=== PATIENT | male | born 1980 | race Caucasian/White ===

== ENCOUNTER 2021-03-13 10:37 | Emergency (ER) | payer OTHER, SELFPAY ==
[2021-03-13 10:58] VITALS: BP 148/99; PULSE 86; RESP 18; TEMP 36.5; O2SAT 100
--- NOTE | 2021-03-13 11:36 | ED.URI ---
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 Patient states he has a 10-day history of scratchy sore throat with mild hoarseness, postnasal drip, dry nonproductive cough associated with his frontal sinus headache. Symptoms are mild unrelieved with OTC preparations like Mucinex , Sudafed and Alyssa; he indicates this is worse than his seasonal predilection for for allergies. No fever, ; no loss of taste/smell, CP, wheezing, S OB-he had Covid illness and vaccine in the past. All signs remarkable for 148/99. The patient has been informed that they may have pre-hypertension or Hypertension based on a BP reading in the department. I recommend that the patient call the primary care provider listed on their discharge instructions or a physician of their choice this week to arrange follow up for further evaluation of possible pre-hypertension or Hypertension Related Data Allergies Allergy/AdvReac Type Severity Reaction Status Date / Time No Known Allergies Allergy Verified 03/13/21 11:02 Review of Systems Review of Systems: General/Constitutional: No weight loss,fever Eyes: N0: Redness,discharge Ears/Nose/Throat: No: Epistaxis,ear discharge Respiratory: Denies: Hemoptysis Gastrointestinal: No Vomiting, Bleeding-rectal Skin: No Lumps, eruption Neurologic: No Focal Weakness,Sz Hematologic: Denies: Petechiae/Purpura Psychiatric: No: Suicida ideationl All Other Systems: Reviewed and Negative PMFSH Comments At time of signature, agree with nursing past medical, surgical, social and family history. There is no relevant family history pertinent to the presenting complaint Exam Narrative: General Appearance: Well appearing, Well nourished EYE: PERRLA, Conjunctiva clear Ears: Auditory canal normal, TM normal Nose: Rhinorrhea, Mucousal erythema Mouth/Throat: MM moist, Uvula midline, Pharyngeal erythema Neck: Supple, No adenopathy Respiratory: No respiratory distress, Breath sounds equal, Clear to auscultation Cardiovascular: RRR, No JVD Musculoskeletal: Non tender, Normal strength Skin: Warm, Dry Neurological: A&O x3, CN II-XII intact Psychiatric: Normal mood, Normal affect Course Vital Signs Vital signs: Vital Signs Temperature 97.7 F 03/13/21 10:58 Pulse Rate 86 03/13/21 10:58 Respiratory Rate 18 03/13/21 10:58 Blood Pressure 148/99 H 03/13/21 10:58 Pulse Oximetry 100 03/13/21 10:58 Temperature 97.7 F 03/13/21 10:58 Pulse Rate 86 03/13/21 10:58 Respiratory Rate 18 03/13/21 10:58 Blood Pressure 148/99 H 03/13/21 10:58 Pulse Oximetry 100 03/13/21 10:58 Discharge Plan Discharge Clinical Impression: Sinus headache Patient Disposition: Home, Self-Care Condition: Stable Instructions: Rhinosinusitis (ED) Prescriptions: New benzonatate 100 mg capsule 100 mg PO TID PRN (Reason: cough) Qty: 20 RF: 2 codeine-guaifenesin 10-100 mg/5 mL liquid 7.5 ml PO HS PRN (Reason: cough) Qty: 118 RF: 0 azelastine 137 mcg (0.1 %) aerosol,spray 137 mcg NASAL Q12H Qty: 30 RF: 2 cefuroxime axetil 500 mg tablet 500 mg PO Q12H Qty: 14 RF: 0 Follow-up/Referrals: UNKNOWN,DOCTOR [Primary Care Provider] -
[2021-03-14 20:27] LABS: SARS-CoV-2 RNA PCR Negative
== END 2021-03-13 11:43 | disposition home or self-care (01) ==
PROVIDERS: Emergency Provider Emergency Medicine
DX: R51.9 Headache, unspecified (principal); Z20.822 Contact with and (suspected) exposure to COVID-19
CPT/HCPCS: 99203; C9803; G0463; U0003; U0005

== ENCOUNTER 2021-03-25 08:03 | Emergency (ER) | payer OTHER, SELFPAY ==
[2021-03-25 08:15] VITALS: BP 208/82; PULSE 75; RESP 17; TEMP 36.8; O2SAT 100
--- NOTE | 2021-03-25 08:29 | PC.NURSE ---
patient walked out of ED without difficulty and in no distress. patient states that he can just go to urgent care.
== END 2021-03-26 04:25 | disposition left against medical advice (07) ==
DX: Z53.21 Procedure and treatment not carried out due to patient leaving prior to being seen by health care provider (principal)
CPT/HCPCS: 99199

== ENCOUNTER 2021-09-12 14:00 | Emergency (ER) | payer OTHER, SELFPAY ==
[2021-09-12 14:10] VITALS: BP 149/97; PULSE 91; RESP 16; TEMP 36.9; O2SAT 100
--- NOTE | 2021-09-12 14:23 | ED.SKABFB ---
HPI - Skin/Abscess/Foreign Bdy General Chief complaint: Skin/Abscess/Foreign Body Stated complaint: spider bite rt arm Time Seen by Provider: 09/12/21 14:24 Source: patient, RN notes reviewed and old records reviewed Mode of arrival: ambulatory Limitations: no limitations History of Present Illness HPI narrative: 41 year old male who presents to [facility] with complaints of red raised rash to the dorsal aspect of his right dorsal lower forearm which he first noticed this morning which has increased in size, redness and swelling. 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 He reports also some pain with rotation of his right wrist also. Patient has strong pulses to his right wrist and brachial area with no tingling or numbness to his fingers, nail beds of right hand daniel briskly. Patient denies any new soaps, lotions, food, medications or any new laundry proucts. Patient denies any difficulty with his swallowing or with his breathing. 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 Area on right forearm marked with skin marker for evaluation of size. MD complaint: rash and insect bite/sting Location: RUE (right lower forearm) Severity: moderate Severity scale (1-10): 4 Quality: aching Exacerbating factors: movement Treatments prior to arrival: none Related Data Allergies Allergy/AdvReac Type Severity Reaction Status Date / Time No Known Allergies Allergy Verified 09/12/21 14:20 Review of Systems Review of Systems: CONSTITUTIONAL: Denies fever, chills, or sweats. EYES: Denies visual changes, redness, or discharge. ENT: Denies rhinorrhea, congestion, sore throat, or otalgia. CARDIOVASCULAR: Denies chest pain, palpitations, or edema. RESPIRATORY: Denies cough or dyspnea. GASTROINTESTINAL: Denies abdominal pain, nausea, vomiting, or diarrhea. GENITOURINARY: Denies dysuria or hematuria. SKIN: Positive for rash to right lower dorsal forearm with redness no drainage or itching has increased in size since this am with increase in discomfort with movement of wrist MUSCULOSKELETAL: Denies back pain, joint pain, or myalgia. NEUROLOGIC: Denies headache, numbness, or weakness. PSYCHIATRIC: Denies anxiety or depression. [facility] Past Medical History Medical History (Updated 09/12/21 @ 15:25 by Saba Guy NP) Hypertension Surgical History Surgical History (Updated 09/12/21 @ 15:27 by Saba Guy NP) History of hemorrhoidectomy History of tonsillectomy and adenoidectomy Social History Social History (Updated 09/12/21 @ 15:24 by Saba Guy NP) Smoking status: Never smoker Alcohol intake: current Alcohol use details: rare social Substance use: never Living arrangements: with family Gender identity (if verbalized by the patient): Male Comments At time of signature, agree with nursing past medical, surgical, social and family history. There is no relevant family history pertinent to the presenting complaint Exam Narrative: GENERAL: Well-appearing, well-nourished, and in no acute distress. HEAD: Normocephalic, atraumatic. EYES: PERRLA and EOMI. ENT: Nares clear, no rhinorrhea or epistaxis. Mucous membranes moist. NECK: Supple.no lymphadenopathy CHEST: Clear to auscultation. No respiratory distress.SAO2 100% on room air HEART: Regular rate and rhythm. No murmur heard. Normal peripheral pulses. ABDOMEN: Soft, nontender, nondistended, normal active bowel sounds. EXTREMITIES: Normal range of motion. No edema. SKIN: Warm, dry, red rash with swelling to right forearm above dorsal wrist, no drainage noted, area is 4.5cm X 3.5cm area area marked with skin marker. Patient reports pain to his wrist area with some decreased mobility to his fingers when he was typing earlier, Patient has strong pulses to right arm and wrist with brisk refill f right finger nail beds,
== END 2021-09-12 14:54 | disposition home or self-care (01) ==
PROVIDERS: Emergency Provider Registered Nurse
DX: S50.861A Insect bite (nonvenomous) of right forearm, initial encounter (principal); W57.XXXA Bitten or stung by nonvenomous insect and other nonvenomous arthropods, initial encounter; L23.89 Allergic contact dermatitis due to other agents; I10 Essential (primary) hypertension
CPT/HCPCS: 99213; G0463

== ENCOUNTER 2025-01-11 10:48 | Emergency (ER) | payer OTHER, SELFPAY ==
--- NOTE | 2025-01-11 10:58 | ED.URI ---
HPI - URI/Sore Throat General Chief Complaint: Upper Respiratory Infection Stated Complaint: Sinus Infection Time Seen by Provider: 01/11/25 10:58 Source: patient Mode of arrival: ambulatory Limitations: no limitations History of Present Illness HPI Narrative: Roshan is a 44-year-old male patient presenting to the clinic today with complaints of possible sinus infection times 10 days. He reports he is having dizziness, sore throat, sinus pressure, sinus congestion, coughing up green phlegm and blowing out green nasal drainage, and headache. States he has been taking/alternating Mucinex D and Sudafed. Denies any chest pain or shortness of breath. No fevers, chills, body aches. Related Data Home Medications ?Medication ?Instructions ?Recorded ?Confirmed ?Last Taken ?Type cholecalciferol (vitamin D3) PO 10/29/24 10/29/24 Unknown History duloxetine 60 mg capsule,delayed 60 mg PO DAILY 10/29/24 10/29/24 Unknown History release enclomiphene BYMOUTH 10/29/24 10/29/24 Unknown History omega-3 fatty acids [Fish Oil] PO 10/29/24 10/29/24 Unknown History prazosin 2 mg capsule 2 mg PO QHS 10/29/24 10/29/24 Unknown History glucosamine sulfate 500 mg tablet 250 mg PO DAILY 01/11/25 01/11/25 Unknown History (Glucosamine) magnesium oxide 150 mg-herbal tablet PO 01/11/25 Unknown History drugs tablet (Beet Root-Magnesium) turmeric 400 mg capsule mg PO 01/11/25 Unknown History Allergies Allergy/AdvReac Type Severity Reaction Status Date / Time No Known Allergies Allergy Verified 01/11/25 11:00 Review of Systems Review of Systems: Pertinent positives per HPI. Patient denies any fever, chills, rash, visual changes, dizziness, shortness of breath, chest pain, palpitations, nausea, vomiting, diarrhea, constipation, abdominal pain, or any urinary issues. [facility] Past Medical History Medical History Urinary frequency Hypogonadism Right carpal tunnel syndrome Cervical dystonia Degenerative disc disease TBI (traumatic brain injury) GIANCARLO (obstructive sleep apnea) PTSD (post-traumatic stress disorder) Migraines IBS (irritable bowel syndrome) Acid reflux Arthritis Anxiety Allergies Surgical History Surgical History History of vasectomy History of hemorrhoidectomy History of tonsillectomy and adenoidectomy Family History Family History Father Alcoholism Heart disease Hypertension Sibling Depression Hypertension Grandparent Diabetes mellitus Grandparent Diabetes mellitus Grandparent Diabetes mellitus Social History Social History Smoking status: Never smoker Alcohol intake: current Alcohol use details: 1-4 drinks per week Substance use: never Living arrangements: with family Gender identity (if verbalized by the patient): Male Comments At the time of my signature, I reviewed and agree with the nursing past medical, surgical, social, and family history. There is no relevant family history pertinent to the patient complaint. Exam Narrative: General: Well-developed, well nourished, in no apparent distress Head: Normocephalic, atraumatic Eyes: Pupils equally round and reactive to light bilaterally, EOM intact, sclera and conjunctive clear, no discharge, lids normal, no nystagmus Ears: TMs intact and congested, ear canals clear, no drainage, grossly hearing normal. Nose: Nares patent, green nasal discharge, moderate inflammation, ethmoid and maxillary sinus tenderness. Mouth: Oral pharynx red without lesions or masses, good dentition, MMM. Tonsils surgically absent postnasal drip Neck: Supple, trachea midline, no enlargement of anterior or posterior cervical nodes, no thyroid masses or goiter palpable. Cardio: Regular rate and rhythm, s1 and s2 normal, no murmur appreciated. Resp: Clear to auscultation bilaterally anteriorly and posteriorly, no rhonchi, rales, wheezing or rubs Musculoskeletal: No deformity, non-tender to palpation, grossly normal range of motion, muscle strength strong and equal, peripheral pulse strong, no edema, no cyanosis, normal gait and station Neuro: Alert and oriented x4 with normal speech, no focal deficits, cranial nerves I through XII intact, muscle strength 5 out of 5, sensation intact bilaterally, negative Romberg test Course Course Emergency Course: Portions of this record may have been created with voice recognition software. Level of Care: Express Care Visit Vital Signs Vital signs: Vital Signs Temperature 36.9 C 01/11/25 10:59 Pulse Rate 89 01/11/25 10:59 Respiratory Rate 18 01/11/25 10:59 Blood Pressure 127/83 01/11/25 10:59 Pulse Oximetry 98 01/11/25 10:59 Oxygen Delivery Room Air 01/11/25 10:59 Temperature 36.9 C 01/11/25 10:59 Pulse Rate 89 01/11/25 10:59 Respiratory Rate 18 01/11/25 10:59 Blood Pressure 127/83 01/11/25 10:59 Pulse Oximetry 98 01/11/25 10:59 Oxygen Delivery Room Air 01/11/25 10:59 Vital signs reviewed MDM - URI/Sore Throat MDM Narrative Medical decision making narrative: At the time of visit patient is resting comfortably on the exam table. Patient appears to be nontoxic. Complaints of possible sinus infection times 10 days. He reports he is having dizziness, sore throat, sinus pressure, sinus congestion, coughing up green phlegm and blowing out green nasal drainage, and headache. States he has been taking/alternating Mucinex D and Sudafed. Denies any chest pain or shortness of breath. No fevers, chills, body aches. On exam patient has TM congestion, green nasal drainage, moderate anterior turbinate inflammation, no nystagmus, sinus tenderness over the ethmoid and maxillary sinuses, oral pharynx was red with postnasal drip, lung sounds are clear, heart rates regular rhythm, neuro exam is normal. Plan: I suspect patient has a sinus infection/vertigo. Prescription for Augmentin was sent to the pharmacy. Supportive measures were discussed with the patient and they voiced understanding discharge instructions and agrees to treatment plan. Return precautions reviewed Differential Diagnosis Differential diagnosis: Likely upper respiratory infection, otitis media, sinusitis, viral infection, bronchitis, influenza, pharyngitis and other (COVID) Discharge Plan Discharge Clinical Impression: Acute bacterial rhinosinusitis, Vertigo Patient Disposition: Home Condition: Stable Instructions: Antibiotic Form, Vertigo (ED), Rhinosinusitis (ED) Additional Instructions: Neuro exam normal in the clinic today Take prescription medications only as prescribed-Augmentin Increase fluids and stay well hydrated May take Tylenol or motrin as directed on bottle for pain/fever May use Flonase 1 spray in each nare daily May take OTC antihistamines such as Zyrtec or Claritin daily as directed on bottle May apply Vicks vapor rub to chest to open sinuses Sinus rinses for congestion Cepacol spray, cough drops, throat lozenges, warm tea with honey/lemon, gargle salt water to soothe throat BRAT diet for diarrhea Clear liquids x 24 hours then advance as tolerated for nausea/vomiting Go to the ED if you develop a worsening in your condition- high fever not controlled by Tylenol or Motrin, dehydration, weakness, lethargy, shortness of breath, or chest pain. Follow up with your PCP in 3-5 days if symptoms persist. Patient Language: Malay Prescriptions: New amoxicillin-pot clavulanate 875-125 mg tablet 1 tablet PO Q12H 10 Days Qty: 20 0RF No Action Beet Root-Magnesium 150 mg tablet PO glucosamine sulfate [Glucosamine] 500 mg tablet 250 mg PO DAILY Rx Instructions: administer with a meal turmeric 400 mg capsule PO prazosin 2 mg capsule 2 mg PO QHS cyclobenzaprine 10 mg tablet 5 - 10 mg PO BID PRN (Reason: muscle spasm) Qty: 60 2RF duloxetine 60 mg capsule,delayed release(DR/EC) 60 mg PO DAILY enclomiphene BYMOUTH Patient Comments: per pain management omega-3 fatty acids [Fish Oil] PO cholecalciferol (vitamin D3) PO Follow-up/Referrals: Neena Barragan NP [Primary Care Provider, [facility]] Time of Disposition: 11:08 Quality NIHSS Nursing Documentation ED NIHSS nursing documentation: reviewed/agree
[2025-01-11 10:59] VITALS: BP 127/83; PULSE 89; RESP 18; TEMP 36.9; O2SAT 98
--- OUTSIDE RECORDS SUMMARY | 2025-01-11 12:20 | XMS_ITS | Clinical Summary ---
Author Organization [facility] Address [address] [place] [address] Care Team Providers Care Principal Technical Specialist Name Role Phone Unavailable Primary Care Provider Unavailabl e Social History Tobacco Use Types Packs/Day Years Used Date Smoking Tobacco: Never Assessed Comments Unknown Sex and Gender Information Value Date Recorded Sex Assigned at Not on file Legal Sex Unknown 04/30/2019 6:26 AM PST Gender Identity Not on file Sexual Orientation Not on file Plan of Treatment Not on file
--- OUTSIDE RECORDS SUMMARY | 2025-01-11 12:20 | XMS_ITS | Encounter Summary ---
Author Organization [facility] Address [address] [place] [address] Care Team Providers Care Otologist Name Role Phone Unavailable Primary Care Provider Unavailabl e Prior Encounters Date Type Department Care Team Description 04/27/2019 Converted 13x Documents [facility] [address] [place] [address] <No scans attached> 04/27/2019 Converted 13x Documents [facility] [address] [place] [address] <No scans attached> 04/27/2019 Converted 13x Documents [facility] [address] [place] [address] <No scans attached> Plan of Treatment Not on file Visit Diagnoses Not on file
--- OUTSIDE RECORDS SUMMARY | 2025-01-11 12:20 | XMS_ITS | Patient Health Record ---
Author Organization [facility] Address [address] [place], [place] [id number] Care Team Providers Care Foreman Shipping Department Name Role Phone ALE ACOSTA Unavailable [phone] [facility], [place] [address] Unava ilable Unavailable Allergies No Known Allergies Reason For Referral Reason [facility] REFERRAL 202 5 ( ORTHOTICS ) FOOT LONGITUD/METATARSAL SUPP 4 UNITS ( 2 PAIRS ). KLL Diagnosis 1 Pain in right foot ( M79.671) Diagnosis 2 Pain in left foot (M 79.672) Referred Organization [facility] Referred Provider ALE ACOSTA Referred Address [address],[place], [id number] Referred Provider Specialty Podiatry Referral Priority Routine Medications Medication SIG (Take, Route, Fr equency, Duration) Notes Start Date End Date Status Hydrocortisone 1 % 1 application Belt Back Operator ally Once a day 12/17/2022 Active Immunizations Vaccine Route Administration Date Status Comme nts Anthrax vaccine, for SC use Unknown 06/20/2007 Administ ered Anthrax vaccine, for SC use Unknown 07/07/2007 Administ ered Anthrax vaccine, for SC use Unknown 07/25/2007 Administ ered Anthrax vaccine, for SC use Unknown 10/06/2009 Administ ered Anthrax vaccine, for SC use Unknown 05/03/2010 Administ ered Hep A-Hep B Unknown 10/24/2004 Administered Hep A-Hep B Unknown 11/24/2004 Administered Hep A-Hep B Unknown 09/12/2005 Administered Influenza (split), 3 yrs and above Unknown 02/05/2011 A dministered Influenza (split), preservat andrew free, 6-35 months Unknown 02/27/2005 Administered Influenza (split), preservat andrew free, 6-35 months Unknown 12/28/2009 Administered Influenza, live, intranasal Unknown 01/25/2006 Administ ered Influenza, live, intranasal Unknown 03/11/2007 Administ ered Influenza, live, intranasal Unknown 01/23/2008 Administ ered Influenza, live, intranasal Unknown 12/09/2008 Administ ered Influenza, quadrivalent, spl it virus Unknown 02/11/2017 Administered Influenza, quadrivalent, spl it, preservative free, 3 years or older Unknown 12/06/2014 Administered Influenza, quadrivalent, spl it, preservative free, 3 years or older Unknown 01/09/2018 Administered Influenza, quadrivalent, spl it, preservative free, 3 years or older Unknown 01/12/2019 Administered Influenza, quadrivalent, spl it, preservative free, 3 years or older Unknown 03/09/2021 Administered Influenza, quadrivalent, spl it, preservative free, 3 years or older Unknown 02/06/2022 Administered Influenza, quadrivalent, spl it, preservative free, 3 years or older Unknown 03/12/2023 Administered Influenza, seasonal, injecta ble, preservative free, 6-35 months Unknown 12/28/2011 Administered Influenza, seasonal, injecta ble, preservative free, 6-35 months Unknown 12/23/2012 Administered Influenza, seasonal, injecta ble, preservative free, 6-35 months Unknown 01/20/2014 Administered Influenza, seasonal, injecta ble, preservative free, 6-35 months Unknown 12/23/2015 Administered IPV Unknown 09/20/2004 Administered Jasiel Covid-19 Vaccine Unknown 08/22/2020 Administere d Chinese encephalitis Unknown 02/11/2014 Administered Chinese encephalitis Unknown 03/11/2014 Administered Meningococcal Quadrivalent Unknown 09/20/2004 Administe red Novel [id number], nasal Unknown 04/22/2009 Admin istered Td (adult) preservative free Unknown 10/22/2019 Adminis tered Td (adult), adsorbed Unknown 09/20/2004 Administered Td (adult), adsorbed Unknown 10/22/2019 Administered Tdap Unknown 10/06/2009 Administered Typhoid, ViCPs Unknown 06/20/2007 Administered Typhoid, ViCPs Unknown 10/06/2009 Administered Typhoid, ViCPs Unknown 02/11/2014 Administered Vital Signs Height-cm 172.72 cm 08/03/2024 Weight-kg 77.11 kg 08/03/2024 Height 68.00 in 08/03/2024 Weight 170 lbs 08/03/2024 BMI 25.85 kg/m2 08/03/2024 Encounters Encounter Location Date Provider Diagnosis [facility] [place] [address] [address] [place] [address] [id number] 07/06/2024 ALE SNOOK Metatarsalgia, right foot M77.41 ; Metatarsalgia, left foot M77.42 ; Other acquired deformities of right foot M21.6X1 and Other acquired deformities of left foot M21.6X2 [facility] [place] [address] [place] [address] [id number] 08/03/2024 ALE SNOOK Metatarsalgia, right foot M77.41 ; Metatarsalgia, left foot M77.42 ; Other acquired deformities of right foot M21.6X1 and Other acquired deformities of left foot M21.6X2 Assessments Encounter Date Diagnosis (ICD Code) Assessment Notes Treatment Notes Treatment Clinical Notes Section Notes 07/06/2024 Metatarsalgia, right foot (ICD-10 - M77.41) Metatarsalgia: I discussed anti-inflammatory treatment options and various means of immobilization with the patient. I educated the patient on icing and stretching, supportive shoegear, and the use of orthotic devices and bracing. Orthotic Scan: The patient was scanned for functional orthotic devices. This was done in the subtalar joint neutral position in a non-weightbearing fashion. The patient will follow-up in 3-4 weeks time to be dispensed and fitted with the devices. 07/06/2024 Metatarsalgia, left foot (ICD-10 - M77.42) 08/03/2024 Metatarsalgia, right foot (ICD-10 - M77.41) Metatarsalgia: I discussed anti-inflammatory treatment options and various means of immobilization with the patient. I educated the patient on icing and stretching, supportive shoegear, and the use of orthotic devices and bracing. Orthotic Dispense: The orthotic devices were dispensed and fitted. It was noted that the orthotic conformed well to the patient's foot in the subtalar joint neutral position. The patient was educated on the device's use, as well as the gradual break-in period for the device. 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 Discussed appropriate shoes, arch supports, and custom orthotics. 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 Discussed appropriate shoes, arch supports, and custom orthotics. 07/06/2024 Other acquired deformities of left foot (ICD-10 - M21.6X2) 08/03/2024 Other acquired deformities of left foot (ICD-10 - M21.6X2) Plan Of Treatment No Information Insurance Providers Payer Name Payer Address Payer Phone Subscriber Number Group Number Insured Name Patient Relationship to Insured Coverage Start Date Coverage End Date [facility] [place] [address] [place] [phone] [id number] KORIN ARMAS Self - patient is the insured
--- OUTSIDE RECORDS SUMMARY | 2025-01-11 12:20 | XMS_ITS | Clinical Summary ---
Author Organization [facility] Address [address] [place] [id number] Care Team Providers Care Race Board Attendant Name Role Phone None, Provider Primary Care Provider Unavaila ble Social History Tobacco Use Types Packs/Day Years Used Date Smoking Tobacco: Never Smokeless Tobacco: Never Alcohol Use Standard Drinks/Week Comments Yes 0 (1 standard drink = 0.6 oz pur e alcohol) occasional Sex and Gender Information Value Date Recorded Sex Assigned at Male 07/03/2024 2:50 PM CDT Legal Sex Male 7:39 AM CDT Gender Identity Not on file Sexual Orientation Not on file Last Filed Vital Signs Vital Sign Reading Time Taken Comments Blood Pressure 142/91 08/16/2021 7:46 AM CDT Pulse 80 08/16/2021 7:46 AM CDT Temperature 36.6 C (97.9 F) 08/16/2021 7:46 AM CDT Respiratory Rate 16 08/16/2021 7:46 AM CDT Oxygen Saturation 99% 08/16/2021 7:46 AM CDT Inhaled Oxygen Concentration - - Weight 85 kg (187 lb 6.3 oz) 08/16/2021 7:50 AM CDT Height 172.7 cm (5' 8) 08/16/2021 7:49 AM CDT Body Mass Index 28.49 08/16/2021 7:49 AM CDT Plan of Treatment Health Maintenance Due Date Last Done Comments Colorectal Cancer Screening Colonoscopy (10 Years) 1978 Annual Physical 1981 Hepatitis C 1996 COVID-19 Vaccine ( season) 2024 08/22/2020 Influenza Adult (#1) 2025 03/12/2023, 02/06/2022, 03/09/2021, Additional history exists DTaP, Tdap and Td Vaccines (4 - Td or Tdap) 10/21/2029 10/22/2019, 10/22/2019, 10/06/2009, Additional history exists Meningococcal Vaccine Aged Out 09/20/2004 No julian gina eligible based on patient's age to complete this topic Hepatitis B Vaccines Completed 09/12/2005, 11/24/2004, 10/24/2004 Meningococcal B Vaccine Aged Out No l onger eligible based on patient's age to complete this topic Pneumococcal Vaccine: Pediatrics (0 to 5 Years) and At-Risk Patients (6 to 49 Years) Aged Out No longer eligible based on patient's age to complete this topic RSV Immunizations Under 20 Months Aged Out No longer eligible based on patient's age to complete this topic Insurance Care Teams Race Board Attendant Relationship Specialty Start Date End Date None, Provider, PCP - General 08/16/21
--- OUTSIDE RECORDS SUMMARY | 2025-01-11 12:20 | XMS_ITS | Clinical Summary ---
Author Organization [facility] [employer] Address [address] [place] [address] Care Team Providers Care Fabricating Machine Operator Name Role Phone None, Physician Primary Care Provider Unavailabl e Source Comments [facility] [employer],non-owned Affiliates and Associated Physician Practices is amultiple site organization consisting of ambulatory clinics and hospital sitesin [place], [place], [place] and [place]. This disclosure is being madepursuant to the Care Everywhere program and may not contain all information available regarding this patient. Last updated 17.[facility] [employer] Allergies No known active allergies Medications * Be aware that medications may not be up to date on this document. Alwaysverify current medications with the patient. DULoxetine (Cymbalta) 20 MG capsule Take 3 (three) capsules by mouth once daily 04/23/2022 Active hydrOXYzine HCl (Atarax) 25 MG tablet Take 1 (one) tablet by mouth as needed 12/11/2022 Active prazosin (Minipress) 1 MG capsule Take 2 (two) capsules by mouth once daily 03/03/2022 Active rosuvastatin (Crestor) 40 MG tablet Take 1 (one) tablet by mouth once daily 09/06/2022 Active [place]-3 Fatty Acids (fish oil) 1000 MG capsule Active melatonin 5 MG tablet Take by mouth at bedtime Active Co-Enzyme Q10 100 MG Active rizatriptan, disintegrating, (Maxalt DELIVERY DRIVER ASSISTANT) 10 MG tablet Take 1 (one) tablet by mouth daily as needed - may repeat one time for Migraine Take 1 tab by mouth once at first sign of migraine. May repeat one time after 2 hours if needed. 9 tablet 3 12/13/2022 Active topiramate (Topamax) 100 MG tablet TAKE 1 TABLET BY MOUTH AT BEDTIME 90 tablet 03/21/2023 Active Social History Tobacco Use Types Packs/Day Years Used Date Smoking Tobacco: Never Assessed Sex and Gender Information Value Date Recorded Sex Assigned at Not on file Legal Sex Male 10:32 AM CDT Gender Identity Not on file Sexual Orientation Not on file Last Filed Vital Signs Vital Sign Reading Time Taken Comments Blood Pressure 139/71 12/13/2022 10:00 AM CDT Pulse 118 12/13/2022 10:00 AM CDT Temperature - - Respiratory Rate - - Oxygen Saturation - - Inhaled Oxygen Concentration - - Weight 87.1 kg (192 lb) 12/13/2022 10:00 AM CDT Height 172.7 cm (5' 8) 12/13/2022 10:00 AM CDT Body Mass Index 29.19 12/13/2022 10:00 AM CDT Plan of Treatment Health Maintenance Due Date Last Done Comments COLOGUARD (AGES 45-75) - COLON CA SCREENING 1978 COLON MONITORING 1978 COLONOSCOPY - COLON CA SCREENING 1978 CT COLONOGRAPHY - COLON CA SCREENING 1978 Colorectal Cancer Screening 1978 FIT - COLON CA SCREENING 1978 FLEX SIG - COLON CA SCREENING 1978 HIV SCREENING 1993 HEPATITIS C SCREENING 08/22/1996 DTAP/TDAP/TD VACCINES (1 - Tdap) 1997 HEPATITIS B VACCINE (1 of 3 - 19+ 3-dose series) 1997 SCREENING FOR DIABETES 12/13/2022 DEPRESSION SCREENING 04/08/2024 COVID-19 VACCINE (2 - 2024- season) 2024 08/22/2020 INFLUENZA VACCINE (#1) 2024 2, 03/09/2021, 02/24/2020, Additional history exists ZOSTER VACCINE (1 of 2) 2028 HIB VACCINE Aged Out No longer eligi ble based on patient's age to complete this topic HPV VACCINE Aged Out No longer eligi ble based on patient's age to complete this topic MENINGOCOCCAL (Group B) VACCINE SHARED DECISION-MAKING Aged Out No longer eligible based on patient's age to complete this topic MENINGOCOCCAL GROUPS A/C/Y/W VACCINE Aged Out No longer eligible based on patient's age to complete this topic PNEUMOCOCCAL VACCINE Aged Out No long er eligible based on patient's age to complete this topic Insurance Care Teams Fabricating Machine Operator Relationship Specialty Start Date End Date None, Physician [address] [place] [address] PCP - General 02/06/23
--- OUTSIDE RECORDS SUMMARY | 2025-01-11 12:20 | XMS_ITS | Data Portability ---
Author Organization [place] [facility] Main Office Address [address] [place] [address] Assessment Encounter Date Assessment Date Assessment LastModified by Organization Details LastModified Time 11/14/2022 11/14/2022 Assessment: Mild OSAHS, AHI = 11 PLMD Plan: The following were reviewed and explained to the patient: [facility] diagnostic sleep study 11/07/22 AHI = 11, REM AHI = 22, PLMI = 44 Elevation in periodic limb movement index may be contributed by duloxetine. Non-pharmacologi c therapy options for periodic limb movement disorder include avoidance of aggravating drugs and substances, mental alerting activities, short daily hemodialysis for patients in renal failure, exercise, leg massage, stretching calf muscles, use of a weighted blanket and applied heat. Patient will cut down on alcohol consumption and caffeine intake. We will check BUN, Creatinine, Vitamin E, Vitamin B12, RBC folate, Iron, TIBC, Ferritin, ESR, Magnesium, Hgb and Hct levels. General information on sleep disordered breathing, evaluation of sleep disordered breathing, treatment with PAP therapy, and living with PAP therapy were covered. PSG is medically necessary to determine the management of sleep apnea. We discussed with the patient the impact of weight on: Sleep disordered breathing Hyperlipidemia OA We discussed with the patient the benefit of PAP therapy on: Sleep disordered breathing Rhinitis Mood disorder Educated the patient on sleep hygiene measures. Relaxing rituals to rest easy, understanding foods with positive and negative impact on sleep, creating a peaceful sleep environment, timing of exercise, using herbal sleep aids, and practicing sleep-friendly meditation were covered. To determine how much sleep is needed, the patient will assess where he falls on the spectrum, examine what lifestyle factors such as work schedules and stress are affecting the quality and quantity of sleep. In general, adults need 7-9 hours of sleep. Educated the patient regarding foods that promote sleep. These include but are not limited to cherries, bananas, toast, oatmeal, and warm milk. Educated the patient regarding foods and drinks to avoid before bedtime. These include but are not limited to aged cheese, chocolate, spicy foods, tomato-based sauces, soy, ginseng tea and processed meat. Advocated influenza vaccination annually and pneumonia vaccination HARMONY. Advocated weight loss through diet and exercise. Patient's ideal body weight according to height and gender is up to 165 lbs. Encouraged patient to adjust caloric intake to maintain/achieve ideal body weight, emphasizing on fruits, vegetables, whole grains, and fat-free or low-fat products. These include lean meats, poultry, fish, beans, eggs, and nuts and foods that are low in saturated fats, trans-fats, cholesterol, salt (sodium), and glycemic index. Stressed the importance of regular exercise up to the patient's capacity limits. In this case, we recommend 20 min daily walking, 2 days a week of resistance training. Patient to monitor BP daily and bring records to PCP for further management. Follow-up: 3 weeks Not available 11/14/2022 12:54:57 11/29/2022 11/29/2022 Assessment: Mild OSAHS, AHI = 11 PLMD Plan: The following were reviewed and explained to the patient: [facility] diagnostic sleep study 11/07/22 AHI = 11, REM AHI = 22, PLMI = 44 Lab data 11/14/22 Elevation in periodic limb movement index may be contributed by duloxetine. Non-pharmacologi c therapy options for periodic limb movement disorder include avoidance of aggravating drugs and substances, mental alerting activities, short daily hemodialysis for patients in renal failure, exercise, leg massage, stretching calf muscles, use of a weighted blanket and applied heat. Patient will cut down on alcohol consumption and caffeine intake. BUN, Creatinine, Vitamin E, Vitamin B12, RBC folate, Iron, TIBC, Ferritin, ESR, Magnesium, Hgb and Hct levels are within normal limits. We will hold off on dopaminergic therapy for now. General information on sleep disordered breathing, evaluation of sleep disordered breathing, treatment with PAP therapy, and living with PAP therapy were covered. PSG is medically necessary to determine the management of sleep apnea. Titration sleep study is scheduled for 12/19/22. We discussed with the patient the impact of weight on: Sleep disordered breathing Hyperlipidemia OA We discussed with the patient the benefit of PAP therapy on: Sleep disordered breathing Rhinitis Mood disorder Educated the patient on sleep hygiene measures. Relaxing rituals to rest easy, understanding foods with positive and negative impact on sleep, creating a peaceful sleep environment, timing of exercise, using herbal sleep aids, and practicing sleep-friendly meditation were covered. To determine how much sleep is needed, the patient will assess where he falls on the spectrum, examine what lifestyle factors such as work schedules and stress are affecting the quality and quantity of sleep. In general, adults need 7-9 hours of sleep. Educated the patient regarding foods that promote sleep. These include but are not limited to cherries, bananas, toast, oatmeal, and warm milk. Educated the patient regarding foods and drinks to avoid before bedtime. These include but are not limited to aged cheese, chocolate, spicy foods, tomato-based sauces, soy, ginseng tea and processed meat. Advocated influenza vaccination annually and pneumonia vaccination HAMRONY. Advocated weight loss through diet and exercise. Patient's ideal body weight according to height and gender is up to 165 lbs. Encouraged patient to adjust caloric intake to maintain/achieve ideal body weight, emphasizing on fruits, vegetables, whole grains, and fat-free or low-fat products. These include lean meats, poultry, fish, beans, eggs, and nuts and foods that are low in saturated fats, trans-fats, cholesterol, salt (sodium), and glycemic index. Stressed the importance of regular exercise up to the patient's capacity limits. In this case, we recommend 20 min daily walking, 2 days a week of resistance training. Patient to monitor BP daily and bring records to PCP for further management. Follow-up: 1 week after titration sleep study Not available 11/29/2022 10:21:47 12/26/2022 12/26/2022 Assessment: Rhinitis Mild OSAHS, AHI = 11 PLMD Plan: The following were reviewed and explained to the patient: [facility] diagnostic sleep study 11/07/22 AHI = 11, REM AHI = 22, PLMI = 44 Lab data 11/14/22 [facility] titration sleep study 12/19/22 [employer] medium Nathan nasal mask @ 7-8 cmH2O, PLMI = 20 Elevation in periodic limb movement index may be contributed by duloxetine. Non-pharmacologi c therapy options for periodic limb movement disorder include avoidance of aggravating drugs and substances, mental alerting activities, short daily hemodialysis for patients in renal failure, exercise, leg massage, stretching calf muscles, use of a weighted blanket and applied heat. Patient will cut down on alcohol consumption and caffeine intake. BUN, Creatinine, Vitamin E, Vitamin B12, RBC folate, Iron, TIBC, Ferritin, ESR, Magnesium, Hgb and Hct levels are within normal limits. We will hold off on dopaminergic therapy for now. Educated the patient on problems and solutions associated with positive airway pressure (PAP) use. Difficulty tolerating pressure, mask leaks, intolerance of interface, nasal congestion, claustrophobic response, dry mouth, and unintentional mask removal during sleep were covered. [employer]Med Air Sense 11 auto set unit with heated humidifier, supplies and [employer] medium Nathan nasal mask @ 7-8 cmH2O ordered. Further titration will be based on clinical response. Provided the patient with a list of local home care stores where positive airway pressure (PAP) units, accoutrement, and services are available. Home care store selection is based on patient's insurance carrier. Patient will setup an appointment with [facility] for supplies and pressure adjustments. A major predictor of success with use of PAP is follow-up with both the respiratory supplier and the treating physician. The respiratory supplier optimally will follow-up within two weeks after starting use while the treating physician optimally will follow-up within 90 days after starting therapy to assess adherence and effectiveness of treatment. The download results can show the treating physician information about adherence to treatment, residual AHI while on treatment and presence of large mask leakage. This information is especially helpful if the patient has residual sleepiness despite treatment. General information on sleep disordered breathing, evaluation of sleep disordered breathing, treatment with PAP therapy, and living with PAP therapy were covered. We discussed with the patient the impact of weight on: Sleep disordered breathing Hyperlipidemia OA We discussed with the patient the benefit of PAP therapy on: Sleep disordered breathing Rhinitis Mood disorder Educated the patient on sleep hygiene measures. Relaxing rituals to rest easy, understanding foods with positive and negative impact on sleep, creating a peaceful sleep environment, timing of exercise, using herbal sleep aids, and practicing sleep-friendly meditation were covered. To determine how much sleep is needed, the patient will assess where he falls on the spectrum, examine what lifestyle factors such as work schedules and stress are affecting the quality and quantity of sleep. In general, adults need 7-9 hours of sleep. Educated the patient regarding foods that promote sleep. These include but are not limited to cherries, bananas, toast, oatmeal, and warm milk. Educated the patient regarding foods and drinks to avoid before bedtime. These include but are not limited to aged cheese, chocolate, spicy foods, tomato-based sauces, soy, ginseng tea and processed meat. Advocated influenza vaccination annually and pneumonia vaccination HARMONY. Advocated weight loss through diet and exercise. Patient's ideal body weight according to height and gender is up to 165 lbs. Encouraged patient to adjust caloric intake to maintain/achieve ideal body weight, emphasizing on fruits, vegetables, whole grains, and fat-free or low-fat products. These include lean meats, poultry, fish, beans, eggs, and nuts and foods that are low in saturated fats, trans-fats, cholesterol, salt (sodium), and glycemic index. Stressed the importance of regular exercise up to the patient's capacity limits. In this case, we recommend 20 min daily walking, 2 days a week of resistance training. Patient to monitor BP daily and bring records to PCP for further management. Follow-up: 3 months, March 2023 flu5 Not available 12/26/2022 14:20:50 03/27/2023 03/27/2023 Assessment: Rhinitis Mild OSAHS, AHI = 11 PLMD Plan: The following were reviewed and explained to the patient: [facility] diagnostic sleep study 11/07/22 AHI = 11, REM AHI = 22, PLMI = 44 Lab data 11/14/22 [facility] titration sleep study 12/19/22 [employer] medium Nathan nasal mask @ 7-8 cmH2O, PLMI = 20 Elevation in periodic limb movement index may be contributed by duloxetine. Non-pharmacologi c therapy options for periodic limb movement disorder include avoidance of aggravating drugs and substances, mental alerting activities, short daily hemodialysis for patients in renal failure, exercise, leg massage, stretching calf muscles, use of a weighted blanket and applied heat. Patient will cut down on alcohol consumption and caffeine intake. BUN, Creatinine, Vitamin E, Vitamin B12, RBC folate, Iron, TIBC, Ferritin, ESR, Magnesium, Hgb and Hct levels are within normal limits. We will hold off on dopaminergic therapy for now. PAP compliance downloaded and interpreted x 20 minutes. Data reviewed and explained to the patient. Average apnea/hypopnea index (AHI) is 1.4. Patient used PAP > 4 hours 62% of the time. PAP is set at 7-8 cmH2O. PAP will remain at 7-8 cmH2O. Oxygen supplementation: none Patient is benefiting from PAP therapy. Encouraged patient to maintain PAP use more than 70% of the time. Statement of PAP use and benefits will be sent to the home care store. Educated the patient on problems and solutions associated with positive airway pressure (PAP) use. Difficulty tolerating pressure, mask leaks, intolerance of interface, nasal congestion, claustrophobic response, dry mouth, and unintentional mask removal during sleep were covered. Provided the patient with a list of local home care stores where positive airway pressure (PAP) units, accoutrement, and services are available. Home care store selection is based on patient's insurance carrier. Patient will setup an appointment with [facility] for supplies and pressure adjustments. A major predictor of success with use of PAP is follow-up with both the respiratory supplier and the treating physician. The respiratory supplier optimally will follow-up within two weeks after starting use while the treating physician optimally will follow-up within 90 days after starting therapy to assess adherence and effectiveness of treatment. The download results can show the treating physician information about adherence to treatment, residual AHI while on treatment and presence of large mask leakage. This information is especially helpful if the patient has residual sleepiness despite treatment. General information on sleep disordered breathing, evaluation of sleep disordered breathing, treatment with PAP therapy, and living with PAP therapy were covered. We discussed with the patient the impact of weight on: Sleep disordered breathing Hyperlipidemia OA We discussed with the patient the benefit of PAP therapy on: Sleep disordered breathing Rhinitis Mood disorder Educated the patient on sleep hygiene measures. Relaxing rituals to rest easy, understanding foods with positive and negative impact on sleep, creating a peaceful sleep environment, timing of exercise, using herbal sleep aids, and practicing sleep-friendly meditation were covered. To determine how much sleep is needed, the patient will assess where he falls on the spectrum, examine what lifestyle factors such as work schedules and stress are affecting the quality and quantity of sleep. In general, adults need 7-9 hours of sleep. Educated the patient regarding foods that promote sleep. These include but are not limited to cherries, bananas, toast, oatmeal, and warm milk. Educated the patient regarding foods and drinks to avoid before bedtime. These include but are not limited to aged cheese, chocolate, spicy foods, tomato-based sauces, soy, ginseng tea and processed meat. Advocated influenza vaccination annually and pneumonia vaccination HARMONY. Advocated weight loss through diet and exercise. Patient's ideal body weight according to height and gender is up to 165 lbs. Encouraged patient to adjust caloric intake to maintain/achieve ideal body weight, emphasizing on fruits, vegetables, whole grains, and fat-free or low-fat products. These include lean meats, poultry, fish, beans, eggs, and nuts and foods that are low in saturated fats, trans-fats, cholesterol, salt (sodium), and glycemic index. Stressed the importance of regular exercise up to the patient's capacity limits. In this case, we recommend 20 min daily walking, 2 days a week of resistance training. Patient to monitor BP daily and bring records to PCP for further management. Follow-up: 1 year, March 2024 [facility] Not available 03/27/2023 15:03:19 03/24/2024 03/24/2024 Assessment: Rhinitis Mild OSAHS, AHI = 11 PLMD Plan: The following were reviewed and explained to the patient: [facility] diagnostic sleep study 11/07/22 AHI = 11, REM AHI = 22, PLMI = 44 Lab data 11/14/22 [facility] titration sleep study 12/19/22 [employer] medium Nathan nasal mask @ 7-8 cmH2O, PLMI = 20 Elevation in periodic limb movement index may be contributed by duloxetine. Non-pharmacologi c therapy options for periodic limb movement disorder include avoidance of aggravating drugs and substances, mental alerting activities, short daily hemodialysis for patients in renal failure, exercise, leg massage, stretching calf muscles, use of a weighted blanket and applied heat. Patient will cut down on alcohol consumption and caffeine intake. BUN, Creatinine, Vitamin E, Vitamin B12, RBC folate, Iron, TIBC, Ferritin, ESR, Magnesium, Hgb and Hct levels are within normal limits. We will hold off on dopaminergic therapy for now. PAP compliance downloaded and interpreted x 20 minutes. Data reviewed and explained to the patient. Average apnea/hypopnea index (AHI) is 1.7. Patient used PAP > 4 hours 21% of the time. PAP is set at 7-8 cmH2O. PAP will remain at 7-8 cmH2O. Keep ramp start at 5 cmH2O. Keep ramp duration at 10 minutes. 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 Keep humidifier level on automatic mode. Keep tube temperature on automatic mode. Oxygen supplementation: none Patient is benefiting from PAP therapy. Encouraged patient to maintain PAP use more than 70% of the time. Statement of PAP use and benefits will be sent to the home care store. Educated the patient on problems and solutions associated with positive airway pressure (PAP) use. Difficulty tolerating pressure, mask leaks, intolerance of interface, nasal congestion, claustrophobic response, dry mouth, and unintentional mask removal during sleep were covered. Provided the patient with a list of local home care stores where positive airway pressure (PAP) units, accoutrement, and services are available. Home care store selection is based on patient's insurance carrier. Patient will setup an appointment with [facility] for supplies and pressure adjustments. A major predictor of success with use of PAP is follow-up with both the respiratory supplier and the treating physician. The respiratory supplier optimally will follow-up within two weeks after starting use while the treating physician optimally will follow-up within 90 days after starting therapy to assess adherence and effectiveness of treatment. The download results can show the treating physician information about adherence to treatment, residual AHI while on treatment and presence of large mask leakage. This information is especially helpful if the patient has residual sleepiness despite treatment. General information on sleep disordered breathing, evaluation of sleep disordered breathing, treatment with PAP therapy, and living with PAP therapy were covered. We discussed with the patient the impact of weight on: Sleep disordered breathing Hyperlipidemia OA We discussed with the patient the benefit of PAP therapy on: Sleep disordered breathing Rhinitis Mood disorder Educated the patient on sleep hygiene measures. Relaxing rituals to rest easy, understanding foods with positive and negative impact on sleep, creating a peaceful sleep environment, timing of exercise, using herbal sleep aids, and practicing sleep-friendly meditation were covered. To determine how much sleep is needed, the patient will assess where he falls on the spectrum, examine what lifestyle factors such as work schedules and stress are affecting the quality and quantity of sleep. In general, adults need 7-9 hours of sleep. Educated the patient regarding foods that promote sleep. These include but are not limited to cherries, bananas, toast, oatmeal, and warm milk. Educated the patient regarding foods and drinks to avoid before bedtime. These include but are not limited to aged cheese, chocolate, spicy foods, tomato-based sauces, soy, ginseng tea and processed meat. Advocated influenza vaccination annually and pneumonia vaccination HARMONY. Advocated weight loss through diet and exercise. Patient's ideal body weight according to height and gender is up to 165 lbs. Encouraged patient to adjust caloric intake to maintain/achieve ideal body weight, emphasizing on fruits, vegetables, whole grains, and fat-free or low-fat products. These include lean meats, poultry, fish, beans, eggs, and nuts and foods that are low in saturated fats, trans-fats, cholesterol, salt (sodium), and glycemic index. Stressed the importance of regular exercise up to the patient's capacity limits. In this case, we recommend 20 min daily walking, 2 days a week of resistance training. Patient to monitor BP daily and bring records to PCP for further management. Follow-up: 1 year, March 2025 [facility] Not available 03/24/2024 15:47:06 Plan of Treatment Reminders Order Date Submit Date Provider Last Modified By Organization Details Last Modified Time Details Appointments Any 15 2024 02:30P Blayne Porras MD Not available Not available Not available Lab iron + TIBC + ferritin, serum [address] (Lab), [address] [place], [address], 02/04/2023 16:35:57 folate, RBC [address] (Lab), [address] [place], [address], 02/04/2023 16:35:57 vitamin B12, serum [facility] [address] [place], [address], 11/16/2022 01:12:28 ESR (erythroc yte sedimenta tion rate), blood [address] (Lab), [address] [place], [address], 02/04/2023 16:35:57 hemoglobi n + hematocri t, blood [address] (Lab), [address] [place], [address], 02/04/2023 16:35:58 bun (blood urea nitrogen) , serum or plasma [address] (Lab), [address] [place], [address], 02/04/2023 16:35:58 creatinin e, serum or plasma [address] (Lab), [address] [place], [address], 02/04/2023 16:35:58 magnesium , serum or plasma [address] (Lab), [address] [place], [address], 02/04/2023 16:35:58 vitamin E, serum 2022 023 [facility] (Lab), [address] [place], [address], 11/20/2022 03:03:27 Referral None recorded. Procedures None recorded. Surgeries None recorded. Imaging polysomno gram, titration study - APPROVED [id number] 09/20/2022 -03/19/202022 023 [facility], [address] [place], [address], 12/24/2022 18:58:03 polysomno gram, titration study 2022 023 [email or web address], [address] [place], [address], 02/04/2023 16:35:45 Medication Orders None recorded. Patient TargetsNo targets recorded. Patient InstructionsNo instructions recorded. Reason for Referral None Reported. Results Created Date Observation Date Name Description Value Unit Range Abnormal Flag Note LastModifiedBy Organization Detail LastModifiedTime 11/14/1911/07/2022 polys omnog brandie, diagn ostic , 6 yrs or older No observ ation record ed. [facility] [address] [place], [address], 11/13/2022 17:47:14 12/25/1912/19/2022 polys omnog brandie, titra tion study No observ ation record ed. [facility] [address] [place], [address], 12/24/2022 18:58:04 Result Notes None recorded. Problems Name Problem SNOMED Code Status Onset Date Resolution Date Notes Provider Name and Address Organization Details Recorded Time Hypertrophy of nasal turbinates 95360364 Active 2021 Not Available [facility] 3 01:00:09 Posterior rhinorrhea 22247847 Active 2021 Not Available [facility] 3 01:00:09 Sleep apnea 47614074 Active 2022 Alli Porras MD [address] [address], [place], [address] , [employer] 3 11:22:35 Periodic limb movement disorder 688851257 Active 2022 Alli Porras MD [address], [place], [address] , [facility] 3 12:30:45 Notes:Medical History: Depre ssion/PTSD/Panic attacks/Anxiety Right tinnitus Rhinitis with postnasal drip Bruxism Obesity with mild OSAHS, AHI = 11, 11/07/22, on autoCPAP c/o IVRC Hyperlipidemia PLMD OA Procedure History: T&A 1988 Hemorrhoidectomy 2016 Vasectomy 2020 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 Procedures Surgical History Date Name Laterality Status Provider Name and Address Organization Details Recorded Time tonsilectom y/adenoids completed Not Available [facility] 06/07/2022 00:59:00 Imaging Results None recorded. Procedure Notes None recorded. Medical Equipment None Reported. Allergies No known drug allergies Medications Name Sig Start Date Stop Date Status Note LastModified by Organization Details LastModified Time amoxicillin 500 mg capsule 09/24 completed Not Available Not Available Not Available atorvastati n 20 mg tablet 09/24 completed Not Available Not Available Not Available valacyclovi r 1 gram tablet 09/24 completed Not Available Not Available Not Available prazosin 1 mg capsule 09/24 completed Not Available Not Available Not Available topiramate 25 mg tablet active Not Available Not Available Not Available meloxicam 7.5 mg tablet active Not Available Not Available Not Available benzonatate 100 mg capsule TAKE 1 CAPSULE BY MOUTH THREE TIMES DAILY NEEDED FOR COUGH 06/27 completed Not Available Not Available Not Available rizatriptan 10 mg disintegrat ing tablet DISSOLVE 1 TABLET BY MOUTH ON THE ONSET OF A MIGRAINE NEEDED. MAY REPEAT WITH 1 TABLET AFTER 2 HOURS IF NEEDED active Not Available Not Available No t Available hydrocortis one 1 % topical cream APPLY TOPICALLY TO THE AFFECTED AREA EVERY DAY 03/24 completed Not Available Not Available Not Available clotrimazol e-betametha sone 1 %-0.05 % topical cream 08/23 completed Not Available Not Available Not Available hydroxyzine HCl 25 mg tablet active Not Available Not Available Not Available codeine 10 mg-guaifene sin 100 mg/5 mL oral liquid TAKE 7.5 ML BY MOUTH AT BEDTIME NEEDED FOR COUGH 06/27 completed Not Available Not Available Not Available gabapentin 100 mg capsule 03/24 completed Not Available Not Available Not Available azelastine 137 mcg (0.1 %) nasal spray [place] 2 sprays twice a day by intranasa l route. 11/14 completed Not Available Not Available Not Available cefuroxime axetil 500 mg tablet TAKE 1 TABLET BY MOUTH EVERY 12 HOURS 06/27 completed Not Available Not Available Not Available polyethylen e glycol 3350 17 gram/dose oral powder MIX 1 SCOOP INTO 4 TO 8 OZ INTO LIQUID AND DRINK BY MOUTH TWICE DAILY active Not Available Not Available No t Available topiramate 100 mg tablet TAKE 1 TABLET BY MOUTH AT BEDTIME active Not Available Not Available No t Available prazosin 2 mg capsule active Not Available Not Available N ot Available amoxicillin 875 mg-potassiu m clavulanate 125 mg tablet TAKE 1 TABLET BY MOUTH TWICE DAILY FOR 7 DAYS 03/24 completed Not Available Not Available Not Available rosuvastati n 20 mg tablet 09/24 completed Not Available Not Available Not Available rosuvastati n 40 mg tablet active Not Available Not Available Not Available Tablet Cutter misc 09/24 completed Not Available Not Available Not Available escitalopra m 5 mg tablet 09/24 completed Not Available Not Available Not Available duloxetine 20 mg capsule,del ayed release 09/24 completed Not Available Not Available Not Available duloxetine 60 mg capsule,del ayed release active Not Available Not Available Not Available magnesium 09/24 completed Not Available Not Available Not Available Glucosamine 08/23 completed Not Available Not Available Not Available cholecalcif jennyfer (vitamin D3) 50 mcg (2,000 unit) tablet 09/24 completed Not Available Not Available Not Available Gavilyte-C 240 gram-22.72 gram-6.72 gram-5.84 gram oral solution MIX AND DRINK 2 LITERS BY MOUTH AT 4 PM THE DAY BEFORE THE COLONOSCO PY AND 2 LITERS AT 10 PM DIRECTED 03/24 completed Not Available Not Available Not Available Flonase Allergy Relief 50 mcg/actuati on nasal spray,suspe nsion [place] 1 spray every day by intranasa l route. 11/14 completed Not Available Not Available Not Available Vitals Date Recorded Heart rate Heart rate Respiratory rate Provider Name and Address Organization Details Last Updated DateTime 11/14/2022 60 /min 60 /min 15 /min Alli Porras MD [address] [facility], [facility] [address], [place], [address], [place] - [facility] [employer] 11/14/2022 12:55:18 Date Recorded Body height Body mass index (BMI) Body weight Body temperature Oxygen saturation Oxygen saturation in Arterial blood by Pulse oximetry Systolic And Diastolic Provider Name and Address Organization Details Last Updated DateTime 3 172.72 cm 29.8 kg/m2 41508.1 g 97.8 [degF] 96 % 96 % 132/84 mm[Hg] Alexandra Crawford MA [facility] [employer] [facility] 3 12:36:59 Date Recorded Heart rate Respiratory rate Provider N sapna and Address Organization Details Last Updated DateTime 11/29/2022 69 /min 14 /min Alli Porras MD [address] [place], [address], [facility] [employer] [facility] 11/29/2022 10:22:39 Date Recorded Body height Body mass index (BMI) Body weight Body temperature Heart rate Oxygen saturation Oxygen saturation in Arterial blood by Pulse oximetry Systolic And Diastolic Provider Name and Address Organization Details Last Updated DateTime 3 172.72 cm 30.6 kg/m2 51910.0 7 g 97.9 [degF] 69 /min 97 % 97 % 128/78 mm[Hg] Alexandra Crawford MA [facility] [employer] [facility] 3 10:03:13 Date Recorded Heart rate Respiratory rate Provider N sapna and Address Organization Details Last Updated DateTime 12/26/2022 71 /min 13 /min Alli Porras MD [address], [place], [address], [facility] [employer] [facility] 12/26/2022 14:29:46 Date Recorded Body height Body mass index (BMI) Body weight Body temperature Heart rate Oxygen saturation Oxygen saturation in Arterial blood by Pulse oximetry Systolic And Diastolic Provider Name and Address Organization Details Last Updated DateTime 3 172.72 cm 30.4 kg/m2 44584.4 7 g 97.6 [degF] 71 /min 98 % 98 % 126/78 mm[Hg] Alexandra Crawford MA [facility] [employer] [facility] 14:03:57 Date Recorded Heart rate Heart rate Respiratory rate Provider Name and Address Organization Details Last Updated DateTime 03/24/2024 75 /min 75 /min 14 /min Alli Porras MD [address] [employer], [place], [address], [facility] [employer] [facility] 03/24/2024 15:47:31 Date Recorded Body height Body mass index (BMI) Body weight Oxygen saturation Oxygen saturation in Arterial blood by Pulse oximetry Body temperature Systolic And Diastolic Provider Name and Address Organization Details Last Updated DateTime 4 172.72 cm 30.6 kg/m2 36199.0 7 g 96 % 96 % 98.3 [degF] 114/72 mm[Hg] Alexandra Crawford MA [facility] [employer] [facility] 4 15:15:32 Date Recorded Heart rate Respiratory rate Provider David alejo and Address Organization Details Last Updated DateTime 03/27/2023 76 /min 15 /min Alli Porras MD [address], [address] [employer] [facility] 03/27/2023 15:07:51 Date Recorded Body height Body mass index (BMI) Body weight Body temperature Heart rate Oxygen saturation Oxygen saturation in Arterial blood by Pulse oximetry Systolic And Diastolic Provider Name and Address Organization Details Last Updated DateTime 3 172.72 cm 31.2 kg/m2 96152.4 4 g 97.9 [degF] 76 /min 97 % 97 % 124/76 mm[Hg] Alexandra Crawford MA [facility] [employer] [facility] 3 14:26:30 Social History Question Answer Notes LastModified by Organizat ion Details LastModified Time Tobacco Smoking Status Never Smoker Not Available [facility] 06/07/2022 00:58:26 Do You Have An Advance Directive? No [email or web address] Information not available 09/24/2022 Is Blood Transfusion Acceptable In An Emergency? Yes [email or web address] Information not available 09/24/2022 What Is Your Level Of Caffeine Consumption? Heavy [email or web address] Information not available 09/24/2022 In The 14 Days Before Symptom Onset, Have You Had Close Contact With A Laboratory-confir med COVID-19 While That Case Was Ill? No [id number] Information not available 06/07/2022 In The 14 Days Before Symptom Onset, Have You Had Close Contact With A Person Who Is Under Investigation For COVID-19 While That Person Was Ill? No [id number] Information not available 06/07/2022 What Type Of Diet Are You Following? REGULAR [email or web address] Information not available 09/24/2022 What Is The Highest Grade Or Level Of School You Have Completed Or The Highest Degree You Have Received? [id number] [email or web address] Information not available 09/24/2022 Do You Have An Electrostatic Air Filter? Yes [email or web address] Information not available 09/24/2022 Do You Have A Humidifier? Yes [email or web address] Information not available 09/24/2022 Where Do You Live? [facility] [email or web address] Information not available 09/24/2022 Do You Have A Medical Power Of Newsstand Vendor? No [email or web address] Information not available 09/24/2022 Do You Have Moisture Problems In Your Home? No [email or web address] Information not available 09/24/2022 What Was The Date Of Your Most Recent Tobacco Screening? 03/24/2024 [email or web address] Information not available 03/24/2024 How Many Children Do You Have? 4 [email or web address] Information not available 09/24/2022 Do You Have Any Pets? Yes [email or web address] Information not available 09/24/2022 What Is Your Relationship Status? [email or web address] Information not available 09/24/2022 Do You Use Your Seat Belt Or Car Seat Routinely? Yes [email or web address] Information not available 09/24/2022 Do You Have Smoke And Carbon Monoxide Detectors In Your Home? Yes [email or web address] Information not available 09/24/2022 Are You Passively Exposed To Smoke? No [email or web address] Information no t available 09/24/2022 Do You Use Sunscreen Routinely? Yes [email or web address] Information not available 09/24/2022 Have You Recently Traveled Abroad? No [id number] Information not available 06/07/2022 Do You Have Any Dietary Restrictions? No [email or web address] Information not available 09/24/2022 Sex: Unknown Functional Status Question Answer Note LastModified by Organizat ion Details LastModified Time Do you use any illicit or recreational drugs? No [id number] Information not available 06/07/2022 Do you or have you ever used any other forms of tobacco or nicotine? No [email or web address] Information not available 09/24/2022 What is your level of alcohol consumption? Occasional [email or web address] Information not available 09/24/2022 Are you currently employed? Yes [email or web address] Information not available 09/24/2022 Have you been exposed to chemicals or toxins? No [email or web address] Information not available 09/24/2022 What is your occupation? [employer] Information not available 09/24/2022 What is your exercise level? Heavy [email or web address] Information not available 09/24/2022 Mental Status Question Answer Note LastModified by Organization D etails LastModified Time Do you feel stressed (tense, restless, nervous, or anxious, or unable to sleep at night)? [id number] [email or web address] Information not available 09/24/2022 Family History Relationship Description Onset Age of this Age Resolved Age Notes LastModified by Organization Details LastModified Time Father Myocardial infarction 43 [email or web address] Not available 11:13:37 Paternal Grandmother Diabetes mellitus [email or web address] Not available 09/06 11:14:13 Maternal Grandfather Diabetes mellitus [email or web address] Not available 09/06 11:14:13 Maternal Grandfather Heart disease [email or web address] Not available 09/06 11:14:40 Paternal Aunt Diabetes mellitus Not available 09/06 11:14:13 Paternal Uncle Diabetes mellitus [email or web address] Not available 09/06 11:14:13 Son Asthma [email or web address] Not availabl e 09/24/2022 11:14:45 Medical History Condition Response SLEEP APNEA N MRSA N ALLERGIES/HAYFEVER N LUNG DISEASE/DISORDER N HISTORY OF DRUG ABUSE N INSOMNIA N COPD N RADIATION / CHEMOTHERAPY N HIGH CHOLESTEROL / HYPERLIPIDEMIA N HYPERTHYROIDISM N BLOOD DISEASES N EAR OR HEARING PROBLEMS N HYPOTHYROIDISM N SHINGLES N DEPRESSION (INCLUDING POST ) N HAVE YOU BEEN HOSPITALIZED OR SEEN IN E ER IN THE PAST YEAR ? N STROKE/TIA N ULCERS N OBESITY N ANEURYSM N HISTORY WITH COMPLICATIONS WITH ANESTHES IA ? N NO SIGNIFICANT PAST MEDICAL HISTORY N USE OF BLOOD THINNERS N DIABETES, TYPE N PARATHYROID DISEASE N ENT N SEASONAL ALLERGIES N HEARTBURN / REFLUX N HEPATITIS / LIVER DISEASE N SLEEP DISORDER N SEIZURES/EPILEPSY N HEADACHES/MIGRAINES N CHF N PACEMAKER N DIZZINESS N HEART DISEASE/HEART PROBLEMS N AIDS/HIV N FRACTURES N HYPERTENSION Y CANCER: SPECIFY N TOURETTE'S N BLOOD TRANSFUSION N ANESTHESIA COMPLICATIONS N ANEMIA/BLOOD DISORDER N CHRONIC EAR INFECTIONS N TUBERCULOSIS N Past Encounters Encounter ID Performer Location Encounter Start Date Encounter Closed Date Diagnosis/Indication Diagnosis SNOMED-CT Code Diagnosis ICD10 Code Diagnosis IMO Codes Diagnosis Note [id number] [facility] [place] [address] [place] [address] 06/27/2021 00:00:00 06/27/2021 12:53:55 [id number] Alli Porras MD [facility] [address] 09/24/2022 11:00:11 09/25/2022 08:33:43 Sleep apnea 29770922 G47.30 G47.33 G47.36 G47.61 [id number] Alli Porras MD [facility] [address] 11/14/2022 12:13:19 11/14/2022 15:37:23 Sleep apnea 38217245 G47.33 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 D50.8 E83.42 [id number] Alli Porras MD [facility] [address] 11/29/2022 09:49:17 11/30/2022 08:06:44 Sleep apnea 44400906 G47.33 Periodic l imb movement disorder 385068315 G47.61 [id number] Alli Porras MD [place] [address] 12/26/2022 13:47:27 12/26/2022 14:41:12 Sleep apnea 50143015 G47.33 Periodic l imb movement disorder 954533414 G47.61 [id number] Alli Porras MD [facility] [place] [place] Pul[facility] [place] [address] 03/27/2023 13:57:32 03/28/2023 08:51:19 Sleep apnea 00537199 G47.33 Periodic l imb movement disorder 072590949 G47.61 [id number] Alli Porras MD [facility] [address] [address] 03/24/2024 14:41:22 03/24/2024 18:15:12 Sleep apnea 45048130 G47.33 Periodic l imb movement disorder 700508178 G47.61 Health Concerns Section Related Observation LastModified by Organization Detai ls LastModified Time None Recorded Concern Status LastModified by Organization Details LastModified Time None Recorded Advance Directives Directive N: Payers Insurance Date Sequence Insurance Name Policy Number Policy Bains Covered Member ID Bains Member ID Guarantor Name 04/06/2024 1 [facility] () Roshan Luis [id number] Roshan Luis Notes Date Note Type Note Provider Name and Address Organization Details Recorded Time 11/14/2022 text/html Primary care/Referring provider: Latisha Worthington MD During the [facility] diagnostic sleep study on 11/07/22, AHI = 11, REM AHI = 22, PLMI = 44. At home, the patient sleeps from 9:30 pm to 5 am and wakes up without an alarm. Snoring: moderate, since .Snorting: yesChoking: yesCoughing: yesGasping: yesGagging: noSighing: yesWitnessed apnea: yesTwitching or jerking of leg(s), arm(s), body, head: yesTeeth grinding: yesTeeth clenching: yesSleeptalking: yesSleepwalking: noSleep crying: yesBedwetting: noTongue/lip/gum/cheek biting: noSleeping with open mouth: yesSleep paralysis: noHypnagogic hallucinations: noHypnopompic hallucinations: noVivid dreams: yesDifficulty with sleep onset: yesDifficulty with sleep maintenance: yesSleep interruptions: sweats, nightmares, gasping, nocturia x 5, thirstPatient wakes up with: fatigue, xerostomia, sore throat, headaches, disorientation, cognitive impairment, mobility impairment, dexterity impairmentDaytime cataplexy: noMorning hypersomnolence: yesAfternoon hypersomnolence: yesCaffeine sources in diet: coffee 8 cups per day, tea 2 cups per day, chocolate 1 candy per day Associated medical and psychiatric conditions:Congestive heart failure: noCoronary artery disease: noMyocardial infarction: noHypertension: noStroke: noBronchial asthma: noChronic obstructive pulmonary disease: noDepression: yesBipolar disorder: noAnxiety: yesPanic disorder: yesPosttraumatic stress disorder: yesAttention deficit and hyperactivity disorder: noObsessive Compulsive disorder: noSchizophrenia: noSchizoaffective disorder: noPersonality disorder: noChronic analgesic use: noChronic sedative/hypnotic use: no EPWORTH SLEEPINESS SCALE (ESS) CHANCE OF DOZING SCORE0 = would never doze1 = slight chance of dozing2 = moderate chance of dozing3 = high chance of dozing SITUATION AND CHANCE OF DOZINGSitting and reading - 3Watching television - 2Sitting inactive in a public place (e.g. a theater or meeting) - 2As a passenger in a car for an hour without a break - 3Lying down to rest in the afternoon when circumstances permit - 3Sitting and talking to someone - 1Sitting quietly after lunch without alcohol - 3In a car, while stopped for a few minutes in the traffic - 1TOTAL SCORE 18Subjectively, patient has a high chance of dozing. Alli Porras MD [address] [place] [address], [id number], [facility] [employer] 11/14/2022 13:00:17 11/29/2022 text/html Primary care/Referring provider: Latisha Worthington MD During the [facility] diagnostic sleep study on 11/07/22, AHI = 11, REM AHI = 22. PLMI = 44 and he is here to go over his lab workup. At home, the patient sleeps from 9:30 pm to 5 am and wakes up without an alarm. Snoring: moderate, since .Snorting: yesChoking: yesCoughing: yesGasping: yesGagging: noSighing: yesWitnessed apnea: yesTwitching or jerking of leg(s), arm(s), body, head: yesTeeth grinding: yesTeeth clenching: yesSleeptalking: yesSleepwalking: noSleep crying: yesBedwetting: noTongue/lip/gum/cheek biting: noSleeping with open mouth: yesSleep paralysis: noHypnagogic hallucinations: noHypnopompic hallucinations: noVivid dreams: yesDifficulty with sleep onset: yesDifficulty with sleep maintenance: yesSleep interruptions: sweats, nightmares, gasping, nocturia x 5, thirstPatient wakes up with: fatigue, xerostomia, sore throat, headaches, disorientation, cognitive impairment, mobility impairment, dexterity impairmentDaytime cataplexy: noMorning hypersomnolence: yesAfternoon hypersomnolence: yesCaffeine sources in diet: coffee 8 cups per day, tea 2 cups per day, chocolate 1 candy per day Associated medical and psychiatric conditions:Congestive heart failure: noCoronary artery disease: noMyocardial infarction: noHypertension: noStroke: noBronchial asthma: noChronic obstructive pulmonary disease: noDepression: yesBipolar disorder: noAnxiety: yesPanic disorder: yesPosttraumatic stress disorder: yesAttention deficit and hyperactivity disorder: noObsessive Compulsive disorder: noSchizophrenia: noSchizoaffective disorder: noPersonality disorder: noChronic analgesic use: noChronic sedative/hypnotic use: no EPWORTH SLEEPINESS SCALE (ESS) CHANCE OF DOZING SCORE0 = would never doze1 = slight chance of dozing2 = moderate chance of dozing3 = high chance of dozing SITUATION AND CHANCE OF DOZINGSitting and reading - 2Watching television - 2Sitting inactive in a public place (e.g. a theater or meeting) - 3As a passenger in a car for an hour without a break - 3Lying down to rest in the afternoon when circumstances permit - 3Sitting and talking to someone - 0Sitting quietly after lunch without alcohol - 2In a car, while stopped for a few minutes in the traffic - 1TOTAL SCORE 16Subjectively, patient has a moderate chance of dozing. Alli Porras MD [address] [place] [address], [place], [address], [place] [facility] [employer] 11/29/2022 10:22:55 12/26/2022 text/html Primary care/Referring provider: Latisha Worthington MD During the [facility] diagnostic sleep study on 11/07/22, AHI = 11, REM AHI = 22. During the [facility] titration sleep study on 12/19/22, the patient uses a [employer] AirSense 11 autoset unit with heated humidification. The patient does not need the ramp to start low and go up slowly on the pressure. There is no xerostomia in a.m. There is no hose/mask condensation with water. The patient wears a [employer] medium Nathan nasal mask without chin strap. There is no claustrophobia, no nostril/nose bridge irritation, no facial rash, no facial numbness, no nosebleeding. The patient feels more refreshed upon waking and daytime alertness is improved. Energy levels are sustained until noon. PLMI is elevated in both sleep studies and his lab workup showed normal results. At home, the patient sleeps from 9:30 pm to 5 am and wakes up without an alarm. Snoring: moderate, since .Snorting: yesChoking: yesCoughing: yesGasping: yesGagging: noSighing: yesWitnessed apnea: yesTwitching or jerking of leg(s), arm(s), body, head: yesTeeth grinding: yesTeeth clenching: yesSleeptalking: yesSleepwalking: noSleep crying: yesBedwetting: noTongue/lip/gum/cheek biting: noSleeping with open mouth: yesSleep paralysis: noHypnagogic hallucinations: noHypnopompic hallucinations: noVivid dreams: yesDifficulty with sleep onset: yesDifficulty with sleep maintenance: yesSleep interruptions: sweats, nightmares, gasping, nocturia x 5, thirstPatient wakes up with: fatigue, xerostomia, sore throat, headaches, disorientation, cognitive impairment, mobility impairment, dexterity impairmentDaytime cataplexy: noMorning hypersomnolence: yesAfternoon hypersomnolence: yesCaffeine sources in diet: coffee 8 cups per day, tea 2 cups per day, chocolate 1 candy per day Associated medical and psychiatric conditions:Congestive heart failure: noCoronary artery disease: noMyocardial infarction: noHypertension: noStroke: noBronchial asthma: noChronic obstructive pulmonary disease: noDepression: yesBipolar disorder: noAnxiety: yesPanic disorder: yesPosttraumatic stress disorder: yesAttention deficit and hyperactivity disorder: noObsessive Compulsive disorder: noSchizophrenia: noSchizoaffective disorder: noPersonality disorder: noChronic analgesic use: noChronic sedative/hypnotic use: no EPWORTH SLEEPINESS SCALE (ESS) CHANCE OF DOZING SCORE0 = would never doze1 = slight chance of dozing2 = moderate chance of dozing3 = high chance of dozing SITUATION AND CHANCE OF DOZINGSitting and reading - 3Watching television - 2Sitting inactive in a public place (e.g. a theater or meeting) - 3As a passenger in a car for an hour without a break - 3Lying down to rest in the afternoon when circumstances permit - 3Sitting and talking to someone - 1Sitting quietly after lunch without alcohol - 2In a car, while stopped for a few minutes in the traffic - 1TOTAL SCORE 18Subjectively, patient has a high chance of dozing. Alli Porras MD [address] [place] [address], [phone], [place] [facility] 12/26/2022 14:30:14 03/27/2023 text/html Primary care/Referring provider: Latisha Worthington MD CC: I don't have morning headaches anymore since I started CPAP. During the [facility] diagnostic sleep study on 11/07/22, AHI = 11, REM AHI = 22. At home since 01/08/23, the patient uses a [employer] AirSense 11 autoset unit with heated humidification. The patient does not need the ramp to start low and go up slowly on the pressure. There is no xerostomia in a.m. There is no hose/mask condensation with water. The patient wears a [employer] medium Nathan nasal mask without chin strap. There is no claustrophobia, no nostril/nose bridge irritation, no facial rash, no facial numbness, no nosebleeding. The patient feels more refreshed upon waking and daytime alertness is improved. Energy levels are sustained until noon. PLMI is elevated in both sleep studies and his lab workup showed normal results. At home, the patient sleeps from 9:30 pm to 5 am and wakes up without an alarm. Snoring: moderate, since .Snorting: yesChoking: yesCoughing: yesGasping: yesGagging: noSighing: yesWitnessed apnea: yesTwitching or jerking of leg(s), arm(s), body, head: yesTeeth grinding: yesTeeth clenching: yesSleeptalking: yesSleepwalking: noSleep crying: yesBedwetting: noTongue/lip/gum/cheek biting: noSleeping with open mouth: yesSleep paralysis: noHypnagogic hallucinations: noHypnopompic hallucinations: noVivid dreams: yesDifficulty with sleep onset: yesDifficulty with sleep maintenance: yesSleep interruptions: sweats, nightmares, gasping, nocturia x 5, thirstPatient wakes up with: fatigue, xerostomia, sore throat, headaches, disorientation, cognitive impairment, mobility impairment, dexterity impairmentDaytime cataplexy: noMorning hypersomnolence: yesAfternoon hypersomnolence: yesCaffeine sources in diet: coffee 8 cups per day, tea 2 cups per day, chocolate 1 candy per day Associated medical and psychiatric conditions:Congestive heart failure: noCoronary artery disease: noMyocardial infarction: noHypertension: noStroke: noBronchial asthma: noChronic obstructive pulmonary disease: noDepression: yesBipolar disorder: noAnxiety: yesPanic disorder: yesPosttraumatic stress disorder: yesAttention deficit and hyperactivity disorder: noObsessive Compulsive disorder: noSchizophrenia: noSchizoaffective disorder: noPersonality disorder: noChronic analgesic use: noChronic sedative/hypnotic use: no EPWORTH SLEEPINESS SCALE (ESS) CHANCE OF DOZING SCORE0 = would never doze1 = slight chance of dozing2 = moderate chance of dozing3 = high chance of dozing SITUATION AND CHANCE OF DOZINGSitting and reading - 2Watching television - 1Sitting inactive in a public place (e.g. a theater or meeting) - 1As a passenger in a car for an hour without a break - 1Lying down to rest in the afternoon when circumstances permit - 1Sitting and talking to someone - 0Sitting quietly after lunch without alcohol - 1In a car, while stopped for a few minutes in the traffic - 0TOTAL SCORE 7Subjectively, patient has a slight chance of dozing. Alli Porras MD [address] [place] [address], [id number], [place] [facility] [place] [employer] [facility] 03/27/2023 15:08:03 03/24/2024 text/html Primary care/Referring provider: Latisha Worthington MD During the [facility] diagnostic sleep study on 11/07/22, AHI = 11, REM AHI = 22. At home since 03/27/23, the patient uses a [employer] AirSense 11 autoset unit with heated humidification. The patient does not need the ramp to start low and go up slowly on the pressure. There is no xerostomia in a.m. There is no hose/mask condensation with water. The patient wears a [employer] medium Nathan nasal mask without chin strap. There is no claustrophobia, no nostril/nose bridge irritation, no facial rash, no facial numbness, no nosebleeding. The patient feels more refreshed upon waking and daytime alertness is improved. Energy levels are sustained until noon. PLMI is elevated in both sleep studies and his lab workup showed normal results. At home, the patient sleeps from 9:30 pm to 5 am and wakes up without an alarm. Snoring: moderate, since .Snorting: yesChoking: yesCoughing: yesGasping: yesGagging: noSighing: yesWitnessed apnea: yesTwitching or jerking of leg(s), arm(s), body, head: yesTeeth grinding: yesTeeth clenching: yesSleeptalking: yesSleepwalking: noSleep crying: yesBedwetting: noTongue/lip/gum/cheek biting: noSleeping with open mouth: yesSleep paralysis: noHypnagogic hallucinations: noHypnopompic hallucinations: noVivid dreams: yesDifficulty with sleep onset: yesDifficulty with sleep maintenance: yesSleep interruptions: sweats, nightmares, gasping, nocturia x 5, thirstPatient wakes up with: fatigue, xerostomia, sore throat, headaches, disorientation, cognitive impairment, mobility impairment, dexterity impairmentDaytime cataplexy: noMorning hypersomnolence: yesAfternoon hypersomnolence: yesCaffeine sources in diet: coffee 8 cups per day, tea 2 cups per day, chocolate 1 candy per day Associated medical and psychiatric conditions:Congestive heart failure: noCoronary artery disease: noMyocardial infarction: noHypertension: noStroke: noBronchial asthma: noChronic obstructive pulmonary disease: noDepression: yesBipolar disorder: noAnxiety: yesPanic disorder: yesPosttraumatic stress disorder: yesAttention deficit and hyperactivity disorder: noObsessive Compulsive disorder: noSchizophrenia: noSchizoaffective disorder: noPersonality disorder: noChronic analgesic use: noChronic sedative/hypnotic use: no EPWORTH SLEEPINESS SCALE (ESS) CHANCE OF DOZING SCORE0 = would never doze1 = slight chance of dozing2 = moderate chance of dozing3 = high chance of dozing SITUATION AND CHANCE OF DOZINGSitting and reading - 2Watching television - 3Sitting inactive in a public place (e.g. a theater or meeting) - 3As a passenger in a car for an hour without a break - 3Lying down to rest in the afternoon when circumstances permit - 3Sitting and talking to someone - 1Sitting quietly after lunch without alcohol - 2In a car, while stopped for a few minutes in the traffic - 1TOTAL SCORE 18Subjectively, patient has a high chance of dozing. Alli Porras MD [address] [facility], [facility] [address], [place], [id number], [facility] 03/24/2024 15:48:22
== END 2025-01-11 11:12 | disposition home or self-care (01) ==
PROVIDERS: Emergency Provider Nurse Practitioner Family; PCP Nurse Practitioner Family
DX: J01.90 Acute sinusitis, unspecified (principal); R42 Dizziness and giddiness; M19.90 Unspecified osteoarthritis, unspecified site; K21.9 Gastro-esophageal reflux disease without esophagitis; Z87.820 Personal history of traumatic brain injury
CPT/HCPCS: 99213; G0463